=== PATIENT | male | born 1970 | race Caucasian/White ===

== ENCOUNTER → 2016-03-05 | Outpatient (CLI) | payer OTHER ==
[~2016-03-05] MED LIST: FLEXERIL 1010 MG/TAB PO; GLUCOPHAGE1000 MG PO; GLUCOPHAGE850 MG PO; LEVEMIR SQ; LISINOPRIL20 MG PO; MIRALAX17 GM PO; NAPROSYN500 M1 PO; TYLENOL 325MG325 MG PO; ZANTAC150 M1 PO
[2016-03-05 10:20] VITALS: BP 132/73
== END ==
LOC: AMSURD 10:00
DX: Z01.812 Encounter for preprocedural laboratory examination (principal); E11.9 Type 2 diabetes mellitus without complications

== ENCOUNTER → 2016-05-24 | Outpatient (CLI) | payer OTHER | LOC: LAB 07:20 | DX: E11.9 Type 2 diabetes mellitus without complications (principal); I10 Essential (primary) hypertension; R74.8 Abnormal levels of other serum enzymes ==

== ENCOUNTER 2016-10-11 09:30 | Outpatient (RCR) | payer OTHER ==
[2016-03-05 10:20] VITALS: BP 132/73
== END 2016-10-14 | disposition home or self-care (01) ==
LOC: PT
DX: Z47.89 Encounter for other orthopedic aftercare (principal)

== ENCOUNTER 2016-12-13 10:30 | Outpatient (RCR) | payer OTHER ==
[2016-03-05 10:20] VITALS: BP 132/73
== END 2016-12-13 12:01 | disposition home or self-care (01) ==
LOC: PT 10:30
DX: Z47.89 Encounter for other orthopedic aftercare (principal); M47.896 Other spondylosis, lumbar region
CPT/HCPCS: G0283-GP

== ENCOUNTER → 2016-12-14 | Outpatient (CLI) | payer OTHER ==
[2016-03-05 10:20] VITALS: BP 132/73
== END ==
LOC: LAB 15:34
DX: E11.9 Type 2 diabetes mellitus without complications (principal); M43.06 Spondylolysis, lumbar region

== ENCOUNTER → 2017-02-14 | Outpatient (CLI) | payer OTHER ==
[2016-03-05 10:20] VITALS: BP 132/73
[2017-02-14 11:32] LABS: BUN/CREATININE RATIO 16.9 (6.0-26.0); POTASSIUM 3.9 mmol/L (3.6-5.0)
== END ==
LOC: LAB 10:31
PROVIDERS: Family Medicine
DX: E11.9 Type 2 diabetes mellitus without complications (principal); M43.06 Spondylolysis, lumbar region

== ENCOUNTER → 2017-06-14 | Outpatient (CLI) | payer OTHER ==
[2016-03-05 10:20] VITALS: BP 132/73
[2017-06-14 13:30] LABS: ALBUMIN 4.6 g/dL (3.5-5.0); BUN/CREATININE RATIO 13.2 (6.0-26.0); CALCIUM 10.4 mg/dL (8.4-10.2); TOTAL BILIRUBIN 0.8 mg/dL (0.2-1.3); TOTAL PROTEIN 8.7 g/dL (6.3-8.2)
== END ==
LOC: RAD 12:26
PROVIDERS: Family Medicine
DX: E11.9 Type 2 diabetes mellitus without complications (principal); K21.9 Gastro-esophageal reflux disease without esophagitis; I10 Essential (primary) hypertension; R74.8 Abnormal levels of other serum enzymes; Z88.8 Allergy status to other drugs, medicaments and biological substances

== ENCOUNTER → 2017-10-30 | Outpatient (CLI) | payer OTHER ==
[2016-03-05 10:20] VITALS: BP 132/73
[2017-10-30 11:52] LABS: ALBUMIN 4.6 g/dL (3.5-5.0); DIRECT BILIRUBIN 0.2 mg/dL (0.0-0.4); TOTAL BILIRUBIN 0.8 mg/dL (0.2-1.3); TOTAL PROTEIN 8.1 g/dL (6.3-8.2)
== END ==
LOC: LAB 11:18
PROVIDERS: Family Medicine
DX: E11.9 Type 2 diabetes mellitus without complications (principal); K21.9 Gastro-esophageal reflux disease without esophagitis; R74.8 Abnormal levels of other serum enzymes

== ENCOUNTER → 2017-12-27 | Outpatient (CLI) | payer OTHER ==
[2016-03-05 10:20] VITALS: BP 132/73
== END ==
LOC: LAB 12:02
DX: E11.9 Type 2 diabetes mellitus without complications (principal); K21.9 Gastro-esophageal reflux disease without esophagitis; R74.8 Abnormal levels of other serum enzymes

== ENCOUNTER → 2018-04-02 | Outpatient (CLI) | payer OTHER ==
[2016-03-05 10:20] VITALS: BP 132/73
== END ==
LOC: LAB 10:16
DX: E11.9 Type 2 diabetes mellitus without complications (principal); K21.9 Gastro-esophageal reflux disease without esophagitis; R94.5 Abnormal results of liver function studies

== ENCOUNTER → 2018-09-30 | Outpatient (CLI) | payer OTHER ==
[2016-03-05 10:20] VITALS: BP 132/73
== END ==
LOC: LAB 08:32
DX: E11.9 Type 2 diabetes mellitus without complications (principal); K21.9 Gastro-esophageal reflux disease without esophagitis; R74.8 Abnormal levels of other serum enzymes

== ENCOUNTER → 2018-11-14 | Outpatient (CLI) | payer OTHER ==
[2016-03-05 10:20] VITALS: BP 132/73
== END ==
LOC: LAB 13:44
DX: E11.9 Type 2 diabetes mellitus without complications (principal); K21.9 Gastro-esophageal reflux disease without esophagitis; R94.5 Abnormal results of liver function studies

== ENCOUNTER → 2019-04-15 | Outpatient (CLI) | payer OTHER ==
[2016-03-05 10:20] VITALS: BP 132/73
== END ==
LOC: LAB 16:20
DX: E11.9 Type 2 diabetes mellitus without complications (principal); K21.9 Gastro-esophageal reflux disease without esophagitis; R74.8 Abnormal levels of other serum enzymes

== ENCOUNTER → 2019-06-26 | Outpatient (CLI) | payer OTHER ==
[2016-03-05 10:20] VITALS: BP 132/73
== END ==
LOC: RAD 13:32
DX: M25.511 Pain in right shoulder (principal); G89.29 Other chronic pain

== ENCOUNTER → 2019-07-02 | Outpatient (CLI) | payer OTHER ==
[2016-03-05 10:20] VITALS: BP 132/73
[2019-07-02 15:37] LABS: EOS # 0.2 (0.04-0.40); HEMATOCRIT 45.5 % (42.0-52.0); HEMOGLOBIN 15.2 g/dL (13.5-18.0); LYMPH# 2.6 (1.50-4.00); MEAN CELL VOLUME 94 fl (78-100); MEAN CORPUSCULAR HEMOGLOBIN 32 pg (27-31); MEAN CORPUSCULAR HGB CONC 33 g/dL (33-37); MEAN PLATELET VOLUME 9.7 fl (7.4-10.4); MONO # 0.9 (0.20-0.80); NEU # 4.4 (1.40-6.50); PLATELET COUNT 211 K/mm3 (130-400); RED BLOOD COUNT 4.82 M/mm3 (4.20-5.60); RED CELL DISTRIBUTION WIDTH 13.2 % (11.5-14.5)
[2019-07-02 15:43] LABS: ALBUMIN 4.5 g/dL (3.5-5.0)
[2019-07-02 15:45] LABS: CALCIUM 9.4 mg/dL (8.3-10.5)
[2019-07-02 15:46] LABS: TOTAL PROTEIN 7.8 g/dL (6.4-8.3)
[2019-07-02 15:48] LABS: TOTAL BILIRUBIN 0.5 mg/dL (0.2-1.2)
== END ==
LOC: RAD 14:33
PROVIDERS: Family Medicine
DX: Z01.818 Encounter for other preprocedural examination (principal); E11.9 Type 2 diabetes mellitus without complications; I10 Essential (primary) hypertension; M43.06 Spondylolysis, lumbar region; M62.81 Muscle weakness (generalized); M54.6 Pain in thoracic spine; Z98.890 Other specified postprocedural states

== ENCOUNTER → 2020-01-13 | Outpatient (CLI) | payer OTHER ==
[2016-03-05 10:20] VITALS: BP 132/73
== END ==
LOC: LAB 12:07
DX: E11.9 Type 2 diabetes mellitus without complications (principal)

== ENCOUNTER → 2020-02-20 | Outpatient (CLI) | payer OTHER ==
[2016-03-05 10:20] VITALS: BP 132/73
== END ==
LOC: LAB 16:44
DX: R43.2 Parageusia (principal); Z20.828 Contact with and (suspected) exposure to other viral communicable diseases

== ENCOUNTER → 2020-06-13 | Outpatient (CLI) | payer OTHER ==
[2016-03-05 10:20] VITALS: BP 132/73
== END ==
LOC: LAB 14:11
DX: E11.9 Type 2 diabetes mellitus without complications (principal)

== ENCOUNTER → 2020-09-29 | Outpatient (CLI) | payer OTHER | LOC: RAD 10:43 → LAB 10:43 | DX: M43.27 Fusion of spine, lumbosacral region (principal); E11.9 Type 2 diabetes mellitus without complications; Z98.1 Arthrodesis status ==

== ENCOUNTER → 2021-01-09 | Outpatient (CLI) | payer OTHER | LOC: LAB 11:49 | DX: S86.891D Other injury of other muscle(s) and tendon(s) at lower leg level, right leg, subsequent encounter (principal) ==

== ENCOUNTER → 2021-04-20 | Outpatient (CLI) | payer OTHER ==
[2021-04-20 09:33] LABS: ALBUMIN 4.4 g/dL (3.5-5.0); POTASSIUM 3.7 mmol/L (3.5-5.1)
[2021-04-20 09:34] LABS: CALCIUM 9.3 mg/dL (8.3-10.5)
[2021-04-20 09:35] LABS: TOTAL PROTEIN 7.7 g/dL (6.4-8.3)
[2021-04-20 09:37] LABS: TOTAL BILIRUBIN 0.6 mg/dL (0.2-1.2)
== END ==
LOC: LAB 08:40
PROVIDERS: Family Medicine
DX: Z12.5 Encounter for screening for malignant neoplasm of prostate (principal); M47.896 Other spondylosis, lumbar region; G62.9 Polyneuropathy, unspecified; E11.9 Type 2 diabetes mellitus without complications

== ENCOUNTER → 2021-07-03 | Outpatient (CLI) | payer OTHER | LOC: RAD 11:32 | DX: M47.816 Spondylosis without myelopathy or radiculopathy, lumbar region (principal); M48.061 Spinal stenosis, lumbar region without neurogenic claudication ==

== ENCOUNTER → 2021-08-11 | Outpatient (CLI) | payer OTHER ==
[2021-08-11 11:06] LABS: HEMATOCRIT 45.9 % (42.0-52.0); HEMOGLOBIN 15.1 g/dL (13.5-18.0); MEAN PLATELET VOLUME 9.5 fl (7.4-10.4); RED BLOOD COUNT 4.63 M/mm3 (4.20-5.60); RED CELL DISTRIBUTION WIDTH 12.9 % (11.5-14.5); WHITE BLOOD COUNT 6.2 K/mm3 (4.8-10.8)
[2021-08-11 11:08] LABS: ALBUMIN 4.3 g/dL (3.5-5.0); POTASSIUM 3.9 mmol/L (3.5-5.1); SODIUM 140 mmol/L (136-145)
[2021-08-11 11:10] LABS: CALCIUM 9.2 mg/dL (8.3-10.5)
[2021-08-11 11:11] LABS: GLUCOSE 158 mg/dL (75-110); TOTAL PROTEIN 7.4 g/dL (6.4-8.3)
[2021-08-11 11:12] LABS: CARBON DIOXIDE 23 mmol/L (22-29)
[2021-08-11 11:13] LABS: TOTAL BILIRUBIN 0.5 mg/dL (0.2-1.2)
[2021-08-11 11:16] LABS: AST-SGOT 15 U/L (5-34)
[2021-08-11 11:17] LABS: ALT/SGPT 19 U/L (0-55)
[2021-08-12 01:06] LABS: HOMOCYSTEINE SERUM OR PLASMA 14.7 umol/L (5.5-16.2)
[2021-08-12 01:36] LABS: FOLATE (FOLIC ACID) 3.3 ng/mL (2.0-20.0)
[2021-08-12 13:56] LABS: ANA SCREEN with REFLEX Positive (Negative)
[2021-08-15 04:33] LABS: CERULOPLASMIN 24 mg/dL (20-60)
[2021-08-16 07:08] LABS: ALPHA 1 GLOBULINS (IEP) 0.2 g/dL (0.1-0.3); ALPHA 2 GLOBULINS (IEP) 1.1 g/dL (0.6-1.0); GAMMA GLOBULINS (IEP) 1.2 g/dL (0.6-1.6); TOTAL PROTEIN (IEP) 7.2 g/dL (())
[2021-08-16 20:55] LABS: VITAMIN E 8.5 mg/L (())
[2021-08-17 23:19] LABS: VITAMIN B1 141 nmol/L (70-180)
== END ==
LOC: LAB 08:58
PROVIDERS: Family Medicine
DX: Z12.5 Encounter for screening for malignant neoplasm of prostate (principal); I10 Essential (primary) hypertension; E11.21 Type 2 diabetes mellitus with diabetic nephropathy; M79.604 Pain in right leg; M79.605 Pain in left leg; M54.50 Low back pain, unspecified; G89.29 Other chronic pain

== ENCOUNTER 2021-09-08 07:49 | Outpatient (RCR) | payer OTHER | END 2021-09-24 | disposition home or self-care (01) | LOC: CARDREHAB | DX: I10 Essential (primary) hypertension (principal); E11.8 Type 2 diabetes mellitus with unspecified complications | CPT/HCPCS: A9500 ==

== ENCOUNTER → 2021-10-16 | Outpatient (CLI) | payer OTHER ==
[2021-10-16 22:56] LABS: FOLATE (FOLIC ACID) 5.9 ng/mL (2.0-20.0)
[2021-10-20 12:21] LABS: METHYLMALONIC ACID, SERUM 0.18 nmol/mL (<=0.40)
== END ==
LOC: LAB 12:48
PROVIDERS: Psychiatry & Neurology Neurology
DX: M54.17 Radiculopathy, lumbosacral region (principal); G62.89 Other specified polyneuropathies; E53.8 Deficiency of other specified B group vitamins

== ENCOUNTER → 2022-01-01 | Outpatient (CLI) | payer OTHER ==
[2022-01-01 09:49] LABS: ALBUMIN 4.2 g/dL (3.5-5.0); POTASSIUM 4.1 mmol/L (3.5-5.1)
[2022-01-01 09:50] LABS: CALCIUM 9.8 mg/dL (8.3-10.5)
[2022-01-01 09:53] LABS: TOTAL BILIRUBIN 0.6 mg/dL (0.2-1.2)
== END ==
LOC: LAB 09:19
PROVIDERS: Family Medicine
DX: R94.5 Abnormal results of liver function studies (principal); E78.5 Hyperlipidemia, unspecified; E11.9 Type 2 diabetes mellitus without complications

== ENCOUNTER → 2022-12-27 | Outpatient (CLI) | payer OTHER ==
[2022-12-27 08:40] LABS: ALBUMIN 4.1 g/dL (3.5-5.0)
[2022-12-27 08:41] LABS: CALCIUM 9.9 mg/dL (8.3-10.5)
[2022-12-27 08:44] LABS: TOTAL BILIRUBIN 0.5 mg/dL (0.2-1.2)
== END ==
LOC: LAB 08:17
PROVIDERS: Family Medicine
DX: M54.2 Cervicalgia (principal); E11.9 Type 2 diabetes mellitus without complications; M47.896 Other spondylosis, lumbar region

== ENCOUNTER → 2023-01-25 | Outpatient (CLI) | payer OTHER ==
[2023-01-25 21:54] LABS: FOLATE (FOLIC ACID) 4.7 ng/mL (2.0-20.0)
== END ==
LOC: LAB 11:03
PROVIDERS: Nurse Practitioner
DX: E53.8 Deficiency of other specified B group vitamins (principal); G62.89 Other specified polyneuropathies

== ENCOUNTER → 2023-04-01 | Outpatient (CLI) | payer OTHER ==
[2023-04-01 11:35] LABS: CALCIUM 9.6 mg/dL (8.3-10.5)
== END ==
LOC: LAB 11:17
PROVIDERS: Family Medicine
DX: E11.9 Type 2 diabetes mellitus without complications (principal)

== ENCOUNTER → 2024-02-05 | Outpatient (CLI) | payer OTHER | LOC: RAD 08:00 | DX: R91.1 Solitary pulmonary nodule (principal); S22.42XD Multiple fractures of ribs, left side, subsequent encounter for fracture with routine healing; K76.0 Fatty (change of) liver, not elsewhere classified; X58.XXXD Exposure to other specified factors, subsequent encounter ==

== ENCOUNTER → 2024-04-15 | Outpatient (CLI) | payer OTHER ==
[2024-04-15 14:07] LABS: BASO # 0.01 K/mm3 (0.02-0.10); EOS # 0.09 K/mm3 (0.04-0.40); EOS % 1.7 % (0.0-4.0); HEMATOCRIT 44.9 % (42.0-52.0); HEMOGLOBIN 14.7 g/dL (13.5-18.0); LYMPH# 1.57 K/mm3 (1.50-4.00); MEAN CELL VOLUME 97 fl (78-100); MEAN CORPUSCULAR HEMOGLOBIN 32 pg (27-31); MEAN CORPUSCULAR HGB CONC 33 g/dL (33-37); MEAN PLATELET VOLUME 9.3 fl (7.4-10.4); MONO # 0.35 K/mm3 (0.20-0.80); NEU # 3.17 K/mm3 (1.40-6.50); PLATELET COUNT 201 K/mm3 (130-400); RED BLOOD COUNT 4.64 M/mm3 (4.20-5.60); RED CELL DISTRIBUTION WIDTH 13.3 % (11.5-14.5); WHITE BLOOD COUNT 5.2 K/mm3 (4.8-10.8)
[2024-04-15 14:15] LABS: SODIUM 138 mmol/L (136-145)
[2024-04-15 14:16] LABS: CALCIUM 9.8 mg/dL (8.3-10.5)
[2024-04-15 14:17] LABS: GLUCOSE 162 mg/dL (75-110)
[2024-04-15 14:18] LABS: CARBON DIOXIDE 23 mmol/L (22-29)
== END ==
LOC: LAB 13:54
PROVIDERS: Family Medicine
DX: E11.29 Type 2 diabetes mellitus with other diabetic kidney complication (principal); R19.4 Change in bowel habit